=== PATIENT | male | born 1955 | race Caucasian/White ===

== ENCOUNTER 2019-06-25 15:52 | Inpatient (IN) ==
--- NOTE | 2019-06-25 16:45 | Diag Imaging Result Doc PS360 ---
EXAM: CT HEAD/C-SPINE W/O CONTRAST INDICATION: head injury/pain TECHNIQUE: This exam was performed using automated exposure control, adjustment of mA or kV according to patient size, and/or use of iterative reconstruction technique. COMPARISON: CT head dated 06/19/2012 FINDINGS: Head: There is patchy low attenuation in the periventricular white matter suggesting mild to moderate microangiopathy. This has worsened somewhat since 2013. There is no definite acute infarct given the limited sensitivity of CT versus MRI. There is no discrete intracranial mass, mass effect, or intracranial hemorrhage. There is a large right periorbital hematoma. Please see separate facial bone CT report performed concurrently for full details. The calvaria is intact. C-spine: There has been prior anterior cervical fusion from C3 through C6. Metallic fusion hardware is in place. There are bulky ventral marginal osteophytes at the unfused levels. There are degenerative changes at the atlantoaxial joint as well. Otherwise, there is no discrete fracture, subluxation, or intrinsic osseous lesion. The surrounding soft tissues are essentially unremarkable. IMPRESSION: 1.Periventricular and subcortical chronic appearing white matter changes that have worsened since 2013. No evidence of acute intracranial pathology. 2.Right periorbital soft tissue hematoma. Please see separate facial bone CT performed concurrently for full details. 3.Multilevel postsurgical and degenerative changes but no evidence of fracture or other definite acute C-spine injury. Electronically signed by Irineo Rodrigues 06/25/2019 4:43 PM
--- NOTE | 2019-06-25 16:49 | Diag Imaging Result Doc PS360 ---
EXAM: CT MAXILLOFACIAL(SINUS) W/O CO INDICATION: fall, facial injury TECHNIQUE: COMPARISON: None. FINDINGS: There is a large right periorbital soft tissue hematoma. The globes are intact and there is no evidence of retrobulbar hematoma. The orbits are intact. No other facial bone fracture is appreciated. Specifically, the nasal bones, maxilla, mandible, zygomatic arches, and pterygoid plates are intact. The mandible is normally located. There is a small left maxillary sinus mucus retention cyst. There is no evidence of intrasinus hemorrhage. The mastoid air cells are clear. IMPRESSION: Large right periorbital hematoma but no evidence of facial bone fracture. Electronically signed by Irineo Rodrigues 06/25/2019 4:47 PM
--- NOTE | 2019-06-25 17:14 | Diag Imaging Result Doc PS360 ---
EXAM: RIBS UNILAT W/PA CHEST RIGHT INDICATION: fall TECHNIQUE: 4 views COMPARISON: 06/19/2012 FINDINGS: There is a fracture involving the anterior aspect of the ninth rib on the right with minimal displacement. No other definite rib fractures identified by plain radiograph. There is no evidence of pneumothorax or pleural fluid collection. There is evidence of prior granulomatous disease. The cardiomediastinal silhouette and central vasculature are unremarkable. IMPRESSION: Fracture of the anterior aspect of the ninth rib as described. Electronically signed by Irineo Rodrigues 06/25/2019 5:11 PM
[2019-06-25 17:18] LABS: URINE SOURCE CLEAN CATCH
[2019-06-25 17:25] LABS: HEMATOCRIT 34.8 % (42.0-52.0); HEMOGLOBIN 11.9 g/dL (14.0-18.0); IMM GRAN# 0.02 X1000 (0.0-0.04); IMM GRAN% 0.3 % (0.0-0.5); LYMPH# 0.42 X1000 (1.2-3.4); LYMPH% 5.4 % (20.5-51.1); MCHC 34.2 g/dL (33-37); MCV 93.5 FL (81-99); MONO# 0.94 X1000 (0.11-0.59); MONO% 12.2 % (1.7-9.3); MPV 10.4 FL (7.4-10.4); NEUT# 6.34 X1000 (1.4-6.5); NEUT% 82.1 % (42.2-75.2); PLT 168 X1000 (130-400); RBC 3.72 XMIL (4.7-6.1); WBC 7.72 X1000 (4.8-10.8)
[2019-06-25 17:27] LABS: BILIRUBIN URINE NEGATIVE (NEGATIVE); BLOOD URINE MODERATE (NEGATIVE); COLOR YELLOW; GLUCOSE URINE NEGATIVE (NEGATIVE); KETONE URINE 60 mg/dL (NEGATIVE); LEUKOCYTES URINE NEGATIVE (NEGATIVE); NITRITE URINE NEGATIVE (NEGATIVE); PROTEIN URINE 100 mg/dL (NEGATIVE); SP GRAVITY URINE 1.016; TURBIDITY URINE CLEAR (CLEAR); UROBILINOGEN URINE NORMAL (NORMAL)
[2019-06-25 17:29] LABS: UR EPITHELIAL CELLS <10 /HPF (<10); URINE BACTERIA NEGATIVE /HPF; URINE RBC <10 /HPF (<10); URINE WBC <10 /HPF (<10)
[2019-06-25] MEDS ORDERED: DILAUDID IV ONE (17:31)
[2019-06-25] MEDS ORDERED: ZOFRAN IV ONE (17:31)
[2019-06-25 17:36] LABS: INR 1.01; PROTIME 13.4 Seconds (11.0-16.0)
[2019-06-25 17:37] LABS: PTT 36.4 Seconds (22.3-41.8)
[2019-06-25 17:42] LABS: ESTIMATED GFR > 60
[2019-06-25 17:44] LABS: AGAP 24; ALB/GLOB RATIO 1.4; ALBUMIN 4.2 g/dL (3.5-5.0); ALKALINE PHOSPHATASE 106 U/L (32-122); BUN 18 mg/dL (8-22); CALCIUM 9.2 mg/dL (8.8-10.2); CHLORIDE 83 mmol/L (98-107); COSMO 259; GLUCOSE 68 mg/dL (70-104); GOT 173 U/L (10-34); GPT 106 U/L (10-44); POTASSIUM 4.1 mmol/L (3.5-5.1); SODIUM 129 mmol/L (136-145); TCO2 22 mmol/L (25-35); TOTAL BILIRUBIN 1.05 mg/dL (0.20-1.00); TOTAL PROTEIN 7.3 g/dL (6.3-8.3)
--- NOTE | 2019-06-25 18:55 | PROVIDER DOCUMENTATION ---
This chart was entered by Dary Bach Scribe, acting as scribe for Abhay Mccullough MD. HPI-Head Injury - History of Present Illness-Head Injury Head Injury Location: reports: other (right orbit) Other injuries associated with incident:: reports: chest (right chest wall) Quality of Pain: reports: aching Severity: reports: mild Onset/Duration: reports: just prior to arrival Timing: reports: still present Method of Injury: reports: fell Any recent trauma/injury?: reports: to head Loss of Consciousness: no loss of consciousness Locality of Occurance: Home Similar Symptoms Previously?: No Recently seen or treated by another doctor?: No <Abhay Mccullough - Last Filed: 06/25/19 18:55> - General Source: patient, family <Kyle MitchellKee - Last Filed: 06/25/19 20:20> - General Chief Complaint: Head Injury Stated Complaint: FALL Time Seen by Provider: 06/25/19 16:06 Allergies/Adverse Reactions: Patient Allergies Allergy/AdvReac Type Severity Reaction Status Date / Time No Known Allergies Allergy Verified 06/25/19 17:27 Home Medications: Home Medication List Medication Instructions Recorded Confirmed Last Taken Type No Home Medications 06/19/12 06/25/19 Unknown History - History of Present Illness-Head Injury Nature of Presenting Problem: Patient is a 64 year old male who presents to the ED via EMS with a head injury. EMS states patient reported falling multiple times today. Patient states his legs got weak and caused him to fall. Patient states pain to right orbit and right side chest wall. Patient denies LOC. (Abhay Mccullough) Review of Systems - Adult - REVIEW OF SYSTEMS - ADULT Constitutional: reports: no symptoms reported Eyes: reports: no symptoms reported Ears, Nose, Mouth & Throat: reports: no symptoms reported Cardiovascular: reports: no symptoms reported Respiratory: reports: no symptoms reported Gastrointestinal: reports: no symptoms reported Genitourinary: reports: no symptoms reported Musculoskeletal: reports: see HPI, other (right chest wall pain). denies: back pain, neck pain Integumentary: reports: no symptoms reported Neurological: reports: see HPI, other (head injury). denies: headache/migraines, syncope Psychiatric: reports: no symptoms reported Endocrine: reports: no symptoms reported Hematologic/Lymphatic: reports: no symptoms reported Allergic/Immunologic: reports: no symptoms reported All Other Systems: Reviewed and Negative <Abhay Mccullough - Last Filed: 06/25/19 18:55> Past History - Adult - PAST MEDICAL HISTORY-ADULT Review of Records: reports: Old Records Reviewed, Nursing Assessment Review, Medications Reviewed, Social history reviewed & non-contributory. Major Childhood Illnesses: reports: denies history Cardiovascular: reports: HTN Respiratory: reports: denies history Gastrointestinal: reports: denies history Obstetrical/Gynecological: reports: denies history Genitourinary: reports: denies history Musculoskeletal: reports: denies history Neurological: reports: Seizures/Epilepsy Psychiatric: reports: denies history Endocrine/Immune: reports: denies history Other Conditions: reports: denies history - PRIOR SURGERIES/PROCEDURES Surgical/Procedure History: reports: hernia repair, back/neck (back) - IMMUNIZATION STATUS Childhood Immunizations: See Nurse Assessment Flu Vaccine: See Nurse Assessment - FAMILY HISTORY Family History: reviewed, not pertinent - SOCIAL HISTORY Smoking: denies Substance Use: denies <Abhay Mccullough - Last Filed: 06/25/19 18:55> Physical Exam- Neurological - Physical Exam-Neuro Initial Vital Signs Reviewed: Yes General Appearance: alert, no apparent distress. negative: lethargic Eye Exam: right eye: other (large hematoma to periorbital ) HENMT: other (large hematoma to right periorbital region) Head Injury: other (large hematoma to right periorbital region) Neck: non-tender, normal inspection. negative: limited range of motion Respiratory: lungs clear, normal breath sounds, other (right anterior chest wall tenderness). negative: rales, stridor Cardiovascular: regular rate, rhythm, no gallop. negative: systolic murmur Abdominal Exam: normal bowel sounds, non tender, soft. negative: rigid Extremity: other (abrasion to right elbow). 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 negative: facial droop Integumentary: other (large hematoma to right periorbital region). negative: diaphoresis, laceration(s) Psych/Mental Status: normal mood/affect, oriented x 3. negative: anxious <Abhay Mccullough - Last Filed: 06/25/19 18:55> Progress - PLAN OF CARE/RESULTS Result Diagrams: 06/25/19 17:09 06/25/19 17:09 - CT/MRI 1 CT Study: Sinuses Impression: See EMR Report ( EXAM: CT MAXILLOFACIAL(SINUS) W/O CO INDICATION: fall, facial injury TECHNIQUE: COMPARISON: None. FINDINGS: There is a large right periorbital soft tissue hematoma. The globes are intact and there is no evidence of retrobulbar hematoma. The orbits are intact. No other facial bone fracture is appreciated. Specifically, the nasal bones, maxilla, mandible, zygomatic arches, and pterygoid plates are intact. The mandible is normally located. There is a small left maxillary sinus mucus retention cyst. There is no evidence of intrasinus hemorrhage. The mastoid air cells are clear. IMPRESSION: Large right periorbital hematoma but no evidence of facial bone fracture. Electronically signed by Irineo Rodrigues 06/25/2019 4:47 PM 06/25/19 1647 Interpreting Physician: Irineo Rodrigues MD Dictated Date/Time: 06/25/19 1642 cc: Abhay Mccullough MD; None,PCP) 2 CT Study: Cervical Spine, Head Impression: See EMR Report (EXAM: CT HEAD/C-SPINE W/O CONTRAST INDICATION: head injury/pain TECHNIQUE: This exam was performed using automated exposure control, adjustment of mA or kV according to patient size, and/or use of iterative reconstruction technique. COMPARISON: CT head dated 06/19/2012 FINDINGS: Head: There is patchy low attenuation in the periventricular white matter suggesting mild to moderate microangiopathy. This has worsened somewhat since 2012. There is no definite acute infarct given the limited sensitivity of CT versus MRI. There is no discrete intracranial mass, mass effect, or intracranial hemorrhage. There is a large right periorbital hematoma. Please see separate facial bone CT report performed concurrently for full details. The calvaria is intact. C-spine: There has been prior anterior cervical fusion from C3 through C6. Metallic fusion hardware is in place. There are bulky ventral marginal osteophytes at the unfused levels. There are degenerative changes at the atlantoaxial joint as well. Otherwise, there is no discrete fracture, subluxation, or intrinsic osseous lesion. The surrounding soft tissues are essentially unremarkable. IMPRESSION: 1.Periventricular and subcortical chronic appearing white matter changes that have worsened since 2012. No evidence of acute intracranial pathology. 2.Right periorbital soft tissue hematoma. Please see separate facial bone CT performed concurrently for full details. 3.Multilevel postsurgical and degenerative changes but no evidence of fracture or other definite acute C-spine injury. Electronically signed by Irineo Rodrigues 06/25/2019 4:43 PM 06/25/19 1643 Interpreting Physician: Irineo Rodrigues MD Dictated Date/Time: 06/25/19 1635 cc: Abhay Mccullough MD; None,PCP) - CHANGE OF SHIFT REPORT (ED Provider) 1 Report Given and Care Transferred to:: Dr Mitchell Time of Transfer: 19:00 Items Pending: Labs <Abhay Mccullough - Last Filed: 06/25/19 18:55> - PLAN OF CARE/RESULTS Result Diagrams: 06/25/19 17:09 06/25/19 17:09 - CONSULTS/PCP/HOSPITALIST Notification #1 *Consult/PCP/Hospitalist*: dr Robles Time Discussed: 20:05 Consult Disposition: Admit <Kyle Mitchell - Last Filed: 06/25/19 20:20> - PLAN OF CARE/RESULTS Progress/Plan/Lab Results: Vital Signs - 8 hr 06/25/19 16:20 06/25/19 17:13 06/25/19 17:14 Temperature 98.9 F Pulse Rate 104 H Respiratory Rate 16 Blood Pressure 177/90 155/91 O2 Sat by Pulse Oximetry 95 95 96 06/25/19 17:45 06/25/19 18:07 06/25/19 18:32 Temperature Pulse Rate 98 H 107 H Respiratory Rate 14 18 14 Blood Pressure 154/93 132/83 O2 Sat by Pulse Oximetry 99 95 06/25/19 19:02 Temperature Pulse Rate 98 H Respiratory Rate Blood Pressure 161/97 O2 Sat by Pulse Oximetry 97 Laboratory Results - last 24 hr 06/25/19 06/25/19 06/25/19 17:09 17:09 17:09 WBC 7.72 RBC 3.72 L Hgb 11.9 L Hct 34.8 L MCV 93.5 MCH 32.0 H MCHC 34.2 RDW Std Deviation 13.0 Plt Count 168 MPV 10.4 Immature Gran % (Auto) 0.3 Neut % (Auto) 82.1 H Lymph % (Auto) 5.4 L Daniels % (Auto) 12.2 H Eos % (Auto) 0.0 Baso % (Auto) 0.0 Immature Gran # (Auto) 0.02 Neut # (Auto) 6.34 Lymph # (Auto) 0.42 L Daniels # (Auto) 0.94 H Eos # (Auto) 0.00 Baso # (Auto) 0.00 PT INR PTT (Actin FS) Sodium 129 L Potassium 4.1 Chloride 83 L Carbon Dioxide 22 L Anion Gap 24 BUN 18 Creatinine 1.0 Estimated GFR/1.73 m2 > 60 BUN/Creatinine Ratio 18 Glucose 68 L Calculated Osmolality 259 Calcium 9.2 Total Bilirubin 1.05 H AST 173 H ALT 106 H Alkaline Phosphatase 106 Troponin T High Sens Total Protein 7.3 Albumin 4.2 Globulin 3.1 Albumin/Globulin Ratio 1.4 Urine Source Urine Color Urine Turbidity Urine pH Ur Specific [place] Urine Protein Ur Glucose (Stick) Ur Ketones (Stick) Urine Blood Urine Nitrite Urine Bilirubin Urobilinogen Dipstick Urine Leukocytes Urine WBC (Auto) Urine RBC (Auto) U Epithel Cells (Auto) Urine Bacteria (Auto) Plasma/Serum Ethyl Alc 06/25/19 06/25/19 06/25/19 17:09 17:09 17:15 WBC RBC Hgb Hct MCV MCH MCHC RDW Std Deviation Plt Count MPV Immature Gran % (Auto) Neut % (Auto) Lymph % (Auto) Daniels % (Auto) Eos % (Auto) Baso % (Auto) Immature Gran # (Auto) Neut # (Auto) Lymph # (Auto) Daniels # (Auto) Eos # (Auto) Baso # (Auto) PT 13.4 INR 1.01 PTT (Actin FS) 36.4 Sodium Potassium Chloride Carbon Dioxide Anion Gap BUN Creatinine Estimated GFR/1.73 m2 BUN/Creatinine Ratio Glucose Calculated Osmolality Calcium Total Bilirubin AST ALT Alkaline Phosphatase Troponin T High Sens 117 H* Total Protein Albumin Globulin Albumin/Globulin Ratio Urine Source CLEAN CATCH Urine Color YELLOW Urine Turbidity CLEAR Urine pH 6.0 Ur Specific [place] 1.016 Urine Protein 100 A Ur Glucose (Stick) NEGATIVE Ur Ketones (Stick) 60 A Urine Blood MODERATE A Urine Nitrite NEGATIVE Urine Bilirubin NEGATIVE Urobilinogen Dipstick NORMAL Urine Leukocytes NEGATIVE Urine WBC (Auto) <10 Urine RBC (Auto) <10 U Epithel Cells (Auto) <10 Urine Bacteria (Auto) NEGATIVE Plasma/Serum Ethyl Alc Orders Category Date Time Status CT HEAD/C-SPINE W/O CONTRAST [CT] Stat Exams 06/25/19 16:[address] MAXILLOFACIAL(SINUS) W/O CO [CT] Stat Exams 06/25/19 16:02 Completed RIBS UNILAT W/PA CHEST RIGHT [RAD] Stat Exams 06/25/19 16:19 Completed ALCOHOL BLOOD Stat Lab 06/25/19 17:09 Completed CBC WITH ELECTRONIC DIFF [HEME] Stat Lab 06/25/19 17:09 Completed COMPREHENSIVE METABOLIC PANEL [CHEM] Stat Lab 06/25/19 17:09 Completed PT [PROTIME WITH INR] [COAG] Stat Lab 06/25/19 17:09 Completed PTT [COAG] Stat Lab 06/25/19 17:09 Completed TROPONIN T HIGH SENSITIVITY Stat Lab 06/25/19 17:09 Completed TROPONIN T HIGH SENSITIVITY Stat Lab 06/25/19 20:10 Ordered URINALYSIS W/POSS RFLX CULT [URINALYSIS] Stat Lab 06/25/19 17:15 Completed Hydromorphone [Dilaudid] Med 06/25/19 17:31 Discontinued 1 mg IV NOW ONE Ondansetron [Zofran] Med 06/25/19 17:31 Discontinued 4 mg IV NOW ONE EKG [EKG] Stat Ther 06/25/19 18:04 Ordered Departure - Departure Date of Disposition Decision: 06/25/19 Certified Medical Emergency: Emergent <Abhay Mccullough - Last Filed: 06/25/19 18:55> - Departure Time of Disposition Decision: 20:16 Certified Medical Emergency: Emergent - Critical Care Note This patient required my direct & personal management of CC.: Yes Total Time (mins): 30 Critical Care Statement: This patient required my direct personal management to treat or rule out processes, the absence of which, could potentiallly result in sudden, clinically significant life or limb threatening deterioration. <Kyle Mitchell - Last Filed: 06/25/19 20:20> - Departure DIAGNOSIS: Non-ST elevated myocardial infarction (non-STEMI), Hyponatremia Fall Qualifiers: Encounter type: initial encounter Qualified Code(s): W19.XXXA - Unspecified fall, initial encounter Traumatic hematoma of face Qualifiers: Encounter type: initial encounter Qualified Code(s): S00.83XA - Contusion of other part of head, initial encounter Disposition: ADMITTED INPATIENT 09 Condition: Fair Referrals and Follow-Ups: None,PCP [Primary Care Provider] - Attestation - Physician/ MALLIKA Attestation The physician spent face to face time with patient:: Yes Advanced Practice Provider documentation review:: Supervising physician onsite and consulted in the evaluation and care of this patient. The physician did have a face to face encounter with the patient. <Abhay Mccullough - Last Filed: 06/25/19 18:55> This chart was documented by the indicated scribe, (Dary Bach Scribe) and accurately reflects the services I performed and decisions made by me, Abhay Mccullough MD, as attested by the provider's signature.
[2019-06-25] MEDS ORDERED: LIPITOR PO ONE ×2 (21:16→22:20)
[2019-06-25] MEDS ORDERED: ATIVAN IV ONE (21:16)
[2019-06-25] MEDS ORDERED: COREG PO ONE ×2 (21:16→21:50)
[2019-06-25] MEDS ORDERED: M.V.I.-12 10 ML, FOLIC ACID 1 MG, MAGNESIUM SULFATE 1 GM, THIAMINE 100 MG in NS 1,000 ML IV ONE (21:17)
[2019-06-25] MEDS ORDERED: ZOFRAN IV PRN (22:20)
[2019-06-25] MEDS: COREG PO SCH (22:20)
[2019-06-25] MEDS ORDERED: NS 1,000 ML IV ONE (22:20)
--- NOTE | 2019-06-26 00:04 | HISTORY AND PHYSICAL ---
REASON FOR ADMISSION: Lower extremity weakness and recurrent falls. HISTORY OF PRESENT ILLNESS: Mr. Travis Sweeney is a 64-year-old man who presents to the ER after falling and hitting his head. He says he has been having multiple falls for the last couple of days, more so today. He attributes his falls to chronic weakness in his legs emanating from neck and back problems affecting his spine. He says he usually has a very unsteady gait and that is what leads to him falling. He denies any antecedent chest pain, palpitations or lightheadedness preceding the falls. He never blacks out each time he falls. Today apparently he fell and landed on the right side of his head and chest. He states that he was in a lot of pain and had a hard time getting up. Fortunately, his nephews were not too far and they saw him on the floor and assisted him. The patient stated he never lost consciousness during the whole process. He was brought to the ER primarily because of the swelling on the right side of his head. The patient denies any antecedent complaints of bleeding, vomiting or diarrhea. He denies any postural lightheadedness. He denies any cardiorespiratory symptoms. He denies any use of any medications, herbal or otherwise. He only takes an aspirin p.r.n. and no other medications. He does admit that he drinks at least 12 beers a day and his last beer was once this morning. He admits that when he does not drink his legs get also very shaky and his gait is very unsteady. No auditory or visual hallucinations. No focal neurological complaints. REVIEW OF SYSTEMS: Twelve-system review was done. Positive findings per HPI. ALLERGIES: None. MEDICATIONS: None. PAST SURGICAL HISTORY: The patient says that he has had 4 spinal surgeries and one cervical disk fusion, with the last surgery in 2009. PAST MEDICAL HISTORY: The patient only admits to having hypertension but has been off his medication for several years. FAMILY HISTORY: Notable for strokes and heart disease in first-degree relatives. No seizures. SOCIAL HISTORY: He drinks 12 beers a day. He does not smoke or use illicit drugs. He lives alone in a trailer but his family is close by. LABORATORY DATA: White count 7000, hemoglobin and hematocrit 11 and 34, platelets 168,000, 82% neutrophils. PT is normal. Sodium 129, BUN 18, creatinine 1.0, glucose 68, total bilirubin is 1.05, AST 173, ALT 106. Troponin is 117. Subsequent troponin is 114. ProBNP is 2300. Uric acid is 9.9. Serum osmolality is 265. Urine osmolality is pending. TSH is 1.0. Urinalysis specific gravity is 1.016, 100 protein, moderate blood, random sodium is 42. Alcohol level is undetected. DIAGNOSTIC DATA: Chest x-ray shows anterior rib fracture of the 9th rib. Maxillofacial CT done showed large right periorbital hematoma without any evidence of facial bone fracture. CT head and C-spine was done which showed periventricular and subcortical chronic white matter changes, which have worsened since 2013; he has a small right periorbital soft tissue hematoma noted; he has postsurgical degenerative changes of the C-spine. His EKG showed normal sinus rhythm. Compared to the old EKG I reviewed, he has new flipped T waves in the lateral leads. No other ischemic changes or acute injury pattern changes. PHYSICAL EXAMINATION: VITAL SIGNS: His blood pressure is 171/92, heart rate 86, respirations 15, temperature is 98.9 degrees, 96% on room air. GENERAL: He is a pleasant but somewhat disheveled middle-aged man who is alert and oriented to person, place and time. Normal mood and affect. HEENT: Head shows large periorbital edema resulting in complete closure of his eyes. When I tried to retract his eyelids, his pupils are reactive on the right and on the left, but he does have scleral ecchymoses on the temporal half of his eye. EOMI. ENT and oropharyngeal exam is negative for any nasal or ear drainage. No oropharyngeal exudates or erythema. No central cyanosis. NECK: Supple. No JVD or carotid bruit. No thyromegaly. CHEST: Clear when auscultated with good air entry in both lung hummel. CARDIOVASCULAR: First and second heart sounds heard. No gallops or murmurs. Rhythm is regular. ABDOMEN: Full, soft. No tenderness. No organomegaly. Bowel sounds are normal. RECTAL: Exam deferred at this time. EXTREMITIES: No edema, clubbing or cyanosis. Good distal pulse volumes. NEUROLOGIC: No gross focal deficits noted, but he has fine resting tremors on outstretched hands. SKIN: Intact, except for the aforementioned bruise on the face and abrasion on the right elbow. MUSCULOSKELETAL: Exam is grossly normal. ASSESSMENT: 1. Xeh-ES-mvomnlrgl myocardial infarction, probably type 2 demand ischemia. 2. Hypertensive heart disease. 3. Alcohol abuse with early withdrawal. 4. Hyponatremia, probably secondary to beer potomania. 5. Head injury complicated with periorbital hematoma. PLAN: Case was discussed with Dr. Patel, who said to avoid any anticoagulations due to the extensive hematoma. We will start the patient on aspirin hopefully early in the morning, along with statin and beta-marnie, the latter for blood pressure control, rate control and to act as a sympatholytic agent in the face of early alcohol withdrawal. The patient was given a banana bag. Vitamin deficiencies will need to be evaluated, which would were definitely present in this patient. Monitor the patient's sodium levels, which are likely due to beer potomania, and avoid hypotonic solutions. Can give either isotonic or hypertonic solutions to correct this. His ataxia could also be due to not only spinal problems or from tremors, but also from hyponatremia. We will start the patient on beta-blockers for blood pressure control. The patient will need to be evaluated for skilled nursing placement because he is at very high risk of severe injury, i.e., head injury. I also do believe this patient is probably also having subcortical strokes, especially based on his CAT scan. cc: Demond Carlson MD
[2019-06-26 00:20] LABS: CK INDEX 0.6 (0.0-2.5); CK-MB 28.52 ng/mL (0.0-5.0)
[2019-06-26] MEDS ORDERED: ATIVAN IV ONE (02:49)
[2019-06-26] MEDS: MORPHINE IV PRN ×3 (03:03→23:28)
[2019-06-26] MEDS: ATIVAN IV PRN ×6 (05:04→21:37)
[2019-06-26 07:21] LABS: ESTIMATED GFR > 60
[2019-06-26 07:24] LABS: CK INDEX 0.6 (0.0-2.5); CK-MB 24.18 ng/mL (0.0-5.0)
[2019-06-26 07:25] LABS: AGAP 16; ALB/GLOB RATIO 1.6; ALBUMIN 3.7 g/dL (3.5-5.0); ALKALINE PHOSPHATASE 87 U/L (32-122); BUN 22 mg/dL (8-22); CALCIUM 8.2 mg/dL (8.8-10.2); CHLORIDE 88 mmol/L (98-107); COSMO 263; GLUCOSE 82 mg/dL (70-104); GOT 146 U/L (10-34); GPT 81 U/L (10-44); POTASSIUM 4.2 mmol/L (3.5-5.1); SODIUM 130 mmol/L (136-145); TCO2 26 mmol/L (25-35); TOTAL BILIRUBIN 0.92 mg/dL (0.20-1.00)
[2019-06-26 07:28] LABS: BASO# 0.02 X1000 (0.0-0.2); BASO% 0.3 % (0.0-0.8); EOS# 0.08 X1000 (0.0-0.7); EOS% 1.2 % (0.0-10.0); HEMATOCRIT 30.5 % (42.0-52.0); HEMOGLOBIN 10.2 g/dL (14.0-18.0); LYMPH% 13.4 % (20.5-51.1); MCHC 33.4 g/dL (33-37); MCV 95.6 FL (81-99); MONO# 1.39 X1000 (0.11-0.59); MONO% 20.7 % (1.7-9.3); MPV 10.5 FL (7.4-10.4); NEUT# 4.34 X1000 (1.4-6.5); NEUT% 64.4 % (42.2-75.2); PLT 166 X1000 (130-400); RBC 3.19 XMIL (4.7-6.1); RDW 13.2 % (11.5-14.5); WBC 6.73 X1000 (4.8-10.8)
--- NOTE | 2019-06-26 07:39 | EKG Report ---
Test Performed on : 06/26/2019 07:17:26 AM Test Reason : ACS/AMI Blood Pressure : / mmHG Vent. Rate : 072 BPM Atrial Rate : 072 BPM P-R Int : 168 ms QRS Dur : 084 ms QT Int : 444 ms P-R-T Axes : 063 017 087 degrees QTc Int : 486 ms Normal sinus rhythm. Nonspecific T wave abnormality Prolonged QT Abnormal ECG When compared with ECG of 25-JUN-2019 18:11, (Unconfirmed) Nonspecific T wave abnormality has replaced inverted T waves in Lateral leads Confirmed by Martin PALMER, Sonido Devries ([id number]) on 06/27/2019 7:01:50 PM
[2019-06-26] MEDS: ASPIRIN PO SCH (09:56)
[2019-06-26] MEDS: COREG PO SCH ×2 (09:56→21:02)
[2019-06-26 11:05] LABS: LYMPHS 18 % (21-51); MONO 8 % (1-9); SEGS 71 % (42-75)
[2019-06-26] MEDS: THIAMINE IM SCH (12:08)
--- NOTE | 2019-06-26 15:16 | CARDIOLOGY CONSULTATION ---
DATE: 06/26/2019 CHIEF COMPLAINT: Fall. HISTORY OF PRESENT ILLNESS: Mr. Sweeney is a 64-year-old gentleman with a history of alcoholism who has had issues with frequent weakness in his lower extremities and falls over the last several days. He hit his head yesterday and has a large hematoma involving the right eye, right forehead and right cheek area. He denies any syncope. His last drink he thinks was yesterday about 5 to 6 hours prior to presentation. He is not sure if he has had any issues with withdrawal in the past. He adamantly denies pain in any other areas other than his head. He drinks around 12 beers a day. PAST MEDICAL HISTORY: Significant for alcoholism. He is not on any home medications. SOCIAL HISTORY: Again at least 12 beers per day. No current tobacco use. No illicit drugs. FAMILY HISTORY/REVIEW OF SYSTEMS: Unable to be obtained secondary to patient's mild levels. PHYSICAL EXAMINATION: Vital Signs: He is afebrile. His heart rate presently is in the 70s. His blood pressure is 175/89. General: He is in no acute distress. HEENT: Oropharynx is moist. She has very poor dentition. He has a large hematoma involving the right orbital area that results in closure of the right eye. He is unable to open this. Neck: Examination shows no obvious thyromegaly or thyroid tenderness. Cardiovascularly: He sounds to be in a regular rate and rhythm. He has no obvious murmurs. He has no S3. He has no lower extremity edema. Chest: Exam is clear to auscultation bilaterally. He has no increased work of breathing. Abdomen: Soft, nontender. He has no obvious organomegaly. Skin: Warm and dry throughout without any rashes. Abdomen: Soft, nontender, nondistended. No obvious organomegaly. Warm and dry throughout. Neurological: He is moving all extremities. He is quite anxious fidgety. DIAGNOSTIC DATA: CT of the maxillofacial shows a large right periorbital hematoma. Head, C-spine CT reviews showed periventricular and subcortical chronic appearing white matter changes worsened since 2013 periorbital hematoma noted. Degenerate changes in the C-spine. His electrocardiogram demonstrated sinus rhythm, no significant EKG changes identified. Rib series demonstrate a fracture of the anterior aspect of the 9th rib on the right. LABORATORY DATA: White count 6.7, hematocrit 30, platelet count is 166,000. Sodium 130, potassium 4.2, BUN 22, creatinine is 1. Cardiac enzymes demonstrate a CK that is elevated in the 4000s. His high sensitivity troponin has ranged anywhere from 88 to 117. His MB fractions have been elevated but his indexes are normal. ASSESSMENT: Mr. Sweeney is a 64-year-old gentleman who has had episodes of leg weakness. He has not had syncope. He has a large hematoma on his right facial area. He has laboratory data that suggests a rhabdomyolysis. PLAN: At this point, we will check an echo. If this is unremarkable then we will sign off. This currently does not appear to be acute coronary syndrome. It is more likely a result of a rhabdomyolysis from multiple falls that have not been related to syncope and seemed to be related to just diffuse leg weakness. cc: Amauri Zuluaga MD
[2019-06-26] MEDS: VALIUM PO SCH ×2 (15:37→21:02)
--- NOTE | 2019-06-26 15:39 | PROGRESS NOTE ---
DATE: 06/26/2019 I have seen and examined Mr. Sweeney today. He is still in the emergency room. He is pending hospital bed. Mr. Sweeney refers to be doing a little better today. He denies any chest pain or shortness of breath. He did, however, say that he was on his driveway when his legs lost control and he fell on his face, hitting hard. He did not have any loss of consciousness, according to him. Mr. Sweeney drinks about 12 cans of beer on a daily basis. He said he has to take a shot every morning to get his day started. He lives by himself and he is for the most part self-sufficient. OBJECTIVELY: Current Vitals: Blood pressure is 150/78, pulse of 69, respiration is 15, temperature 97.8 degrees, patient is saturating 94%. General: Mr. Sweeney is a 64-year-old gentleman. He is in bed. He is not in any cardiopulmonary distress. He looks quite unkept. Mucosa is pink and moist. Anicteric. Acyanotic. The face, there is swelling over the right eye with some ecchymotic lesions. Neck: Supple. There was no JVD. Chest: Good air entry bilaterally. A few distant wheezing but no crackles and no rhonchi. Cardiovascular: Regular rate and rhythm. No murmurs, no rubs, no gallops. GI: Abdomen was soft, minimally distended, but nontender. Bowel sounds present. Extremities: No pedal edema. PARK INTERPRETIVE RANGER: Patient was awake, alert, oriented x3. He has no motor deficit. Sensation is intact, both pinprick and vibration sense. The patient has some old scars over the cervical spine as well as the lumbar spine from previous spine surgeries. LABORATORY DATA: WBC 6.72, hemoglobin is 10.2, platelet count of 166,000. Chemistry is also reviewed. Sodium is slightly up to 130, chloride is 88. AST is 146, ALT is 81. Troponins are elevated. IMAGING STUDIES: A CT scan of the head and cervical spine shows periventricular and subcortical chronic appearing white matter changes. There is also a right periorbital soft tissue hematoma. There is a multilevel postsurgical and degenerative changes but no evidence of fracture or definite acute cervical spine. There is a maxillofacial CAT scan, which also shows a large right periorbital hematoma, but no evidence of facial bone fracture. The rib x-ray shows a fracture of the anterior aspect of the 9th rib. ASSESSMENT: 1. Status post mechanical fall resulting in a facial trauma with a large right periorbital hematoma. The patient's vision seems to be okay with no visual deficits. We will continue to monitor this during the hospital course. 2. Severe alcohol use and abuse with withdrawal symptoms. The patient is remarkably shaky, however, he does not have any altered mentation. He is not hallucinating at this point. We are going to continue with Valium and p.r.n. Ativan and we will replace all the minerals and electrolytes abnormality associated with alcohol use and abuse. 3. Uncontrolled hypertension. Patient has been started on carvedilol. 4. Elevated troponin. Unsure if the patient has an underlying atherosclerotic coronary artery disease or this is a demand mismatch ischemia. The patient has been evaluated by Cardiology. There is a plan for echocardiogram. We will continue to monitor. 5. Hyponatremia, most likely due to beer potomania noted. We will continue to restrict free water. 6. History of lower extremity weakness. Mr. Sweeney refers that this has been going on for a while and it is normally associated to his back surgery. On physical exam, however, he seems to be pretty strong and he did not have any sensory deficit and power seems to be about 5/5 in both lower extremities. We will continue to monitor this during the hospital course and we will get physical therapy also to evaluate him. cc: Matt Galarza MD
[2019-06-26 16:37] LABS: CK INDEX 0.6 (0.0-2.5); CK-MB 25.26 ng/mL (0.0-5.0)
--- NOTE | 2019-06-26 19:34 | ECHO REPORT ---
ORDER DATE: 06/26/2019 INDICATION: The patient had suffered a fall, question of non-ST myocardial infarction. M-MODE MEASUREMENTS: Left ventricle end diastole: 5.7. Left ventricle end systole: 3.6. Posterior wall: 1.1. Interventricular septum: 1.1. Left atrium: 3.8. Aortic diameter: 3.6. SUMMARY OF 2-DIMENSIONAL IMAGIN. Left ventricular function appears to be at the low limits of normal, estimated at 55%. Optison was added to optimize visualization of the endocardium. There is suggestion of hypokinesis of the base of the inferior wall of the left ventricle. 2. The aortic valve appears to be grossly normal. Color flow mapping unremarkable. 3. The mitral valve shows calcification of the annulus. Color flow mapping indicates a mild degree of regurgitation. 4. Pulse wave (PW) Doppler of mitral inflow shows mild reversal of the E/A ratio. The ratio is 0.6. 5. Tissue Doppler of septal and lateral mitral annulus averages 6 cm. 6. Question of impaired left ventricular relaxation. 7. The tricuspid valve shows a mild degree of regurgitation. Pulmonary pressure estimated at 40 mmHg. 8. The pulmonic valve is unremarkable. 9. The aortic valve is unremarkable. Color flow mapping unremarkable. 10.There is no pericardial effusion, no mass, and no thrombus. 11.The left atrium appears to be mildly enlarged. SUMMARY: This study shows: 1. Left ventricular systolic function at the lower limits of normal, ejection fraction of 55% with hypokinesis of the basal to midportion of the inferior wall of the left ventricle, raising concern for coronary heart disease. 2. Calcification of the mitral annulus. 3. Impaired left ventricular relaxation. 4. Mild degree of pulmonary hypertension at 40 mmHg. 5. Unremarkable aortic valve. Clinical correlation recommended. cc: MD Amauri Johnston MD MTDD
[2019-06-26 21:28] LABS: URINE SOURCE CATH
[2019-06-26 21:33] LABS: BILIRUBIN URINE NEGATIVE (NEGATIVE); BLOOD URINE TRACE (NEGATIVE); COLOR YELLOW; GLUCOSE URINE NEGATIVE (NEGATIVE); KETONE URINE 20 mg/dL (NEGATIVE); LEUKOCYTES URINE NEGATIVE (NEGATIVE); NITRITE URINE NEGATIVE (NEGATIVE); PROTEIN URINE TRACE mg/dL (NEGATIVE); SP GRAVITY URINE 1.013; TURBIDITY URINE CLEAR (CLEAR); UR EPITHELIAL CELLS <10 /HPF (<10); URINE BACTERIA NEGATIVE /HPF; URINE RBC <10 /HPF (<10); URINE WBC <10 /HPF (<10); UROBILINOGEN URINE NORMAL (NORMAL)
[2019-06-26] MEDS: ATIVAN 20 MG in NS 190 ML IV SCH (22:43)
[2019-06-27] MEDS: MORPHINE IV PRN ×2 (06:05→23:51)
[2019-06-27] MEDS: ATIVAN IV PRN (06:05)
[2019-06-27 06:12] LABS: HEMATOCRIT 34.3 % (42.0-52.0); HEMOGLOBIN 11.4 g/dL (14.0-18.0); MCH 31.8 PG (27-31); MCHC 33.2 g/dL (33-37); MCV 95.8 FL (81-99); MPV 10.4 FL (7.4-10.4); RBC 3.58 XMIL (4.7-6.1); RDW 12.9 % (11.5-14.5); WBC 8.18 X1000 (4.8-10.8)
[2019-06-27 06:42] LABS: AGAP 23; ALBUMIN 3.8 g/dL (3.5-5.0); BUN 17 mg/dL (8-22); CALCIUM 8.8 mg/dL (8.8-10.2); CHLORIDE 92 mmol/L (98-107); COSMO 272; CREATININE 0.8 mg/dL (0.7-1.2); ESTIMATED GFR > 60; GLUCOSE 66 mg/dL (70-104); IRON SATURATION 21 %; PHOSPHORUS 3.4 mg/dL (2.7-4.5); POTASSIUM 3.8 mmol/L (3.5-5.1); SODIUM 136 mmol/L (136-145); TCO2 21 mmol/L (25-35); TIBC 224 ug/dL; TOTAL IRON 48 ug/dL (53-167); UNBOUND IRON 176 ug/dL (112-346)
[2019-06-27 06:45] LABS: FERRITIN 1042 ng/mL (30-400)
[2019-06-27] MEDS: ATIVAN 20 MG in NS 190 ML IV SCH ×2 (08:04→18:55)
[2019-06-27] MEDS: COREG PO SCH ×2 (10:03→21:02)
[2019-06-27] MEDS: ASPIRIN PO SCH (10:03)
[2019-06-27] MEDS: VALIUM PO SCH ×2 (10:03→21:02)
[2019-06-27] MEDS: THIAMINE IM SCH (11:16)
--- NOTE | 2019-06-27 13:49 | PROGRESS NOTE ---
DATE: 06/27/2019 SUBJECTIVE: This morning Mr. Sweeney is seen in the ICU. He was actually sleeping, is arousable. He said was doing well. I understand he had just been given his mangle press catcher Valium dose. OBJECTIVE: Vital signs: Blood pressure is 158/78, pulse of 69, respiration is 12, temperature 98.2 degrees. General: Mr. Sweeney is a 64-year-old gentleman. He is in bed, no distress. HEENT: Mucosa is pink and moist. Anicteric. Acyanotic. The patient has swelling over the right eye with ecchymotic lesions. NECK: Was supple there was no JVD. Respiratory System: There was a clear good air entry bilaterally in both lungs. Some few distant wheezing in posterior lung hummel. No rhonchi and no crackles. Cardiovascular: Regular rate and rhythm. No murmurs, no rubs, no gallops. GI: Abdomen soft, nontender. Bowel sounds present. There is no hepatosplenomegaly. Extremities: No pedal edema. Distal pulses are present. INSULATION MECHANIC: Patient is sleepy but easily arousable. Follows commands. LABORATORY DATA: WBC is 8.18, hemoglobin is 11.4, platelet count of 217,000. Chemistry is also reviewed, unremarkable. ASSESSMENT: 1. Status post mechanical fall resulting in a facial trauma with a large right periorbital hematoma. The patient has a normal vision in the right eye. 2. Alcohol use and abuse with withdrawal symptoms. We will continue with the withdrawal protocol. 3. Uncontrolled hypertension improved. 4. Mildly elevated troponin. Cardiology is on board. The patient's EKG is unremarkable we are pending the result of the echo. 5. Hyponatremia presumed to be a potomania. We will continue fluid restriction. 6. Weakness in lower extremities. Patient current physical exam shows normal power and no motor deficit. cc: Matt Galarza MD
--- NOTE | 2019-06-27 19:54 | CARDIOLOGY PROGRESS NOTE ---
DATE: 06/27/2019 SUBJECTIVE: Mr. Sweeney is a bit more confused than yesterday. He is in restraints. He is not opening his eyes but he mumbles unintelligibly to the examiner. PHYSICAL EXAMINATION: He is afebrile. His heart rate is 75. His blood pressure most recently was 155/94. His systolics have been widely variable anywhere from the 120s to 200s.Generally: He is in no acute distress. HEENT: He continues to have marked hematomas to the right periorbital area. Cardiovascular: He is in a regular rate and rhythm. He has no obvious murmurs. He has no S3. He has no lower extremity edema. Chest: Clear bilaterally. He has no increased work of breathing. Abdomen: Soft, nontender. PERTINENT DATA: His echocardiogram was reviewed. Preserved ejection fraction. Suggestion of possible mild hypokinesis of the base of the left ventricle. His lab data shows a sodium 136, potassium 3.8, BUN 17, creatinine 0.8. His TSH was normal. He had a troponin that was initially 117, subsequently trended down to 88. His electrocardiogram on the demonstrated sinus rhythm, with no ischemic changes. ASSESSMENT: Mr. Sweeney is a 64-year-old gentleman who presented with what appeared to be rhabdomyolysis. He had a low grade troponin elevation. He has no symptoms suggestive of acute coronary syndrome. PLAN: His ejection fraction is preserved but he does appear to have a possible segmental wall motion abnormality. Considering his current clinical situation we will continue him on the aspirin and carvedilol. I would not recommend pursuing an ischemia evaluation currently. We may plan on doing stress testing in the near future. I will add in a low-dose ARB for better control of his blood pressure, also in the setting of possible wall motion abnormality noted on his echocardiogram. cc: Amauri Zuluaga MD
[2019-06-28] MEDS: MORPHINE IV PRN (03:13)
[2019-06-28] MEDS ORDERED: DUONEB (A & A) INH PRN (03:38)
[2019-06-28 05:45] LABS: INR 1.01; PROTIME 13.4 Seconds (11.0-16.0)
[2019-06-28 05:50] LABS: BASO# 0.04 X1000 (0.0-0.2); BASO% 0.5 % (0.0-0.8); EOS# 0.43 X1000 (0.0-0.7); EOS% 5.9 % (0.0-10.0); HEMATOCRIT 34.9 % (42.0-52.0); HEMOGLOBIN 11.5 g/dL (14.0-18.0); LYMPH# 1.17 X1000 (1.2-3.4); LYMPH% 15.9 % (20.5-51.1); MCV 97.2 FL (81-99); MONO# 1.59 X1000 (0.11-0.59); MONO% 21.6 % (1.7-9.3); MPV 10.1 FL (7.4-10.4); NEUT# 4.12 X1000 (1.4-6.5); NEUT% 56.1 % (42.2-75.2); PLT 247 X1000 (130-400); RBC 3.59 XMIL (4.7-6.1); RDW 12.9 % (11.5-14.5); WBC 7.35 X1000 (4.8-10.8)
[2019-06-28 06:17] LABS: AGAP 18; ALB/GLOB RATIO 1.3; ALBUMIN 3.7 g/dL (3.5-5.0); ALKALINE PHOSPHATASE 94 U/L (32-122); BUN 14 mg/dL (8-22); CALCIUM 8.7 mg/dL (8.8-10.2); CHLORIDE 93 mmol/L (98-107); COSMO 273; CREATININE 0.8 mg/dL (0.7-1.2); ESTIMATED GFR > 60; GLUCOSE 84 mg/dL (70-104); GOT 91 U/L (10-34); GPT 65 U/L (10-44); POTASSIUM 3.2 mmol/L (3.5-5.1); SODIUM 137 mmol/L (136-145); TCO2 26 mmol/L (25-35); TOTAL BILIRUBIN 1.01 mg/dL (0.20-1.00); TOTAL PROTEIN 6.6 g/dL (6.3-8.3)
--- NOTE | 2019-06-28 08:19 | Diag Imaging Result Doc PS360 ---
EXAM: CHEST-PORTABLE INDICATION: dyspnea, hypoxia TECHNIQUE: One view COMPARISON: 06/25/2019 FINDINGS: Lung volumes are somewhat lower. There are lungs remain grossly clear, however. No new consolidation is identified. Cardiac silhouette is stable. IMPRESSION: Slightly lower lung volumes. Stable chest, otherwise. Electronically signed by Irineo Rodrigues 06/28/2019 8:17 AM
[2019-06-28 08:59] LABS: ALLEN TEST YES; BE 1.7 mmoll (-3.0-3.0); BLOOD TYPE ARTERIAL; HCO3-(ACT) 26.2 mmoll (20.0-26.0); METHB 1.4 % (0.0-1.5); O2(CT) 16.1 mL/dL (15.0-23.0); O2HB 96.5 % (95.0-99.0); PCO2(98.6) 42 mmHg (35-45); PO2(98.6) 135 mmHg (60-100); SAMPLE BLOOD; SAO2 99.8 % (95.0-100.0); THB 11.7 g/dL (11.5-17.4); pH(98.6) 7.41 (7.35-7.45)
[2019-06-28 09:00] LABS: MODALITY VENTIMASK
[2019-06-28] MEDS ORDERED: COZAAR PO SCH (09:00)
[2019-06-28] MEDS: POTASSIUM CHLORIDE 20 MEQ/SWI 20 MEQ/100 ML IVPB IV SCH ×2 (09:46→11:46)
[2019-06-28] MEDS: THIAMINE IM SCH (09:47)
[2019-06-28 10:27] LABS: CHOLESTEROL 184 mg/dL (0-200); HDL 93 mg/dL (35-55); LDL 76 mg/dL; TRIGLYCERIDES 75 mg/dL (39-160); VLDL 15 mg/dL
[2019-06-28] MEDS: ASPIRIN PO SCH (11:44)
[2019-06-28] MEDS: COREG PO SCH ×2 (11:44→21:30)
[2019-06-28] MEDS: COZAAR PO SCH (11:44)
[2019-06-28] MEDS: VALIUM PO SCH ×2 (11:45→21:30)
--- NOTE | 2019-06-28 12:38 | PROGRESS NOTE ---
DATE: 06/28/2019 SUBJECTIVE: This morning Mr. Sweeney is on Ativan drip and he is minimally responsive. He would open his eyes and withdraw from pain, but he is verbally not responsive. OBJECTIVE: Vital signs: Blood pressure is 185/109, pulse of 70, respirations 19, temperature is 98.7 degrees. General exam: Mr. Sweeney is a 64-year-old gentleman. He is in bed. He is on a Venturi mask. HEENT/neck: Mucosa is pink and moist. Anicteric. Acyanotic. Neck is supple. He has some bruises over the right face with the swelling and hematoma under the right eye. The eye globe itself is unremarkable, except for mild conjunctival hemorrhage. Chest: Good air entry bilaterally. No crepitations. No rhonchi. Cardiovascular: Regular rate and rhythm. No murmurs, no rubs, no gallops. GI/Abdomen: Soft, distended. Bowel sounds present. Extremities: No pedal edema. UNDERWEAR WELTER: Patient is sleepy, but will withdraw to painful stimulation. LABORATORY DATA: Has been reviewed, unremarkable except for mild low potassium. AST and ALT are trending down. ASSESSMENT: 1. Status post mechanical fall resulting in a facial trauma with a large right periorbital hematoma. The patient's vision is intact. We will continue to monitor. 2. Alcohol use and abuse with withdrawal symptoms. The patient is on the protocol. We are going to now discontinue the drip, and use the Valium with as-needed Ativan. 3. Uncontrolled hypertension. We are going to go up on the patient's current antihypertensive medications, including the Coreg and the losartan. 4. Mildly elevated troponin presumably from demand mismatch vs CAD. Echocardiogram showed an ejection fraction of 55%, but also said there is hypokinesis of the basal to mid point of the inferior wall, raising concern for coronary artery disease. I think patient would eventually need to be evaluated, so would need to have a stress test and possibly a left heart catheterization. Cardiology is on board and will defer further recommendations to them. 6. Generalized weakness, more predominantly in the lower extremities. We will re-evaluate this once patient is out of the Ativan drip. cc: MD ALY Godinez
[2019-06-28] MEDS ORDERED: LOVENOX SUBQ ONE (14:17)
[2019-06-28] MEDS: CLINIMIX E 4.25%-5% SOLUTION 1,000 ML IV SCH (14:37)
[2019-06-29] MEDS: CLINIMIX E 4.25%-5% SOLUTION 1,000 ML IV SCH ×3 (00:46→23:36)
[2019-06-29] MEDS: TYLENOL PO PRN (06:29)
[2019-06-29 06:35] LABS: BASO# 0.04 X1000 (0.0-0.2); BASO% 0.5 % (0.0-0.8); EOS# 0.12 X1000 (0.0-0.7); EOS% 1.5 % (0.0-10.0); HEMATOCRIT 34.1 % (42.0-52.0); HEMOGLOBIN 11.2 g/dL (14.0-18.0); IMM GRAN# 0.02 X1000 (0.0-0.04); IMM GRAN% 0.3 % (0.0-0.5); LYMPH# 1.16 X1000 (1.2-3.4); LYMPH% 14.8 % (20.5-51.1); MCHC 32.8 g/dL (33-37); MCV 97.4 FL (81-99); MONO# 2.07 X1000 (0.11-0.59); MONO% 26.5 % (1.7-9.3); MPV 9.8 FL (7.4-10.4); NEUT# 4.41 X1000 (1.4-6.5); NEUT% 56.4 % (42.2-75.2); PLT 274 X1000 (130-400); WBC 7.82 X1000 (4.8-10.8)
[2019-06-29 07:15] LABS: AGAP 12; ALB/GLOB RATIO 1.1; ALBUMIN 3.3 g/dL (3.5-5.0); ALKALINE PHOSPHATASE 85 U/L (32-122); BUN 17 mg/dL (8-22); CHLORIDE 95 mmol/L (98-107); COSMO 276; CREATININE 0.8 mg/dL (0.7-1.2); ESTIMATED GFR > 60; GLUCOSE 169 mg/dL (70-104); GOT 50 U/L (10-34); GPT 46 U/L (10-44); POTASSIUM 3.9 mmol/L (3.5-5.1); SODIUM 135 mmol/L (136-145); TCO2 28 mmol/L (25-35); TOTAL BILIRUBIN 0.98 mg/dL (0.20-1.00); TOTAL PROTEIN 6.4 g/dL (6.3-8.3)
[2019-06-29 07:25] LABS: LYMPHS 8 % (21-51); MONO 36 % (1-9); SEGS 56 % (42-75)
[2019-06-29] MEDS: COREG PO SCH ×2 (08:50→20:22)
[2019-06-29] MEDS: COZAAR PO SCH (08:51)
[2019-06-29] MEDS: ASPIRIN PO SCH (08:51)
[2019-06-29] MEDS: THIAMINE 100 MG in NS 50 ML IV SCH (08:51)
[2019-06-29] MEDS: VALIUM PO SCH ×2 (08:51→20:22)
[2019-06-29] MEDS: LOVENOX SUBQ SCH (08:51)
--- NOTE | 2019-06-29 10:24 | PROGRESS NOTE ---
DATE: 06/29/2019 SUBJECTIVE: This morning, Mr. Sweeney refers to be doing a lot better. No more shaking. I understand he had his breakfast. He was calmer. I understand a brother of his came to visit him. OBJECTIVE: Vital Signs: Blood pressure is 166/89, pulse of 89, respirations 23, temperature is 100.1 degrees. General: Mr. Sweeney is a 64-year-old, gentleman. He is in bed. No distress. HEENT: Mucosa is pink and moist. Anicteric. Acyanotic. Neck is supple. The patient has an ecchymotic lesion over the right eye with swelling below the eye. The eye globe itself has some mild conjunctival hemorrhage, but vision is normal. Chest: Good air entry bilaterally. There are no crepitations, no rhonchi. Cardiovascular: Regular rate and rhythm. There are no murmurs, no rubs, no gallops. GI: Abdomen is soft, nontender. Bowel sounds present. Extremities: No pedal edema. Distal pulses present. ELECTRIC HOIST OPERATOR: The patient is awake, alert. He follows commands. I did not see a lot of tremors today. LABORATORY DATA: CBC shows mild normocytic anemia. Chemistry is also reviewed. Sodium is 135. The rest of chemistry is unremarkable. ASSESSMENT: 1. Status post mechanical fall, resulting in facial trauma with a large right periorbital hematoma. Vision is intact. The patient continues to be stable. 2. Alcohol use and abuse with withdrawal symptoms on admission. The patient seems to be a lot better now. No more shaking. No hallucinations. He is calmer. He is tolerating his diet. We are going to transfer him out of the intensive care unit. 3. Uncontrolled hypertension. Will continue with his current medications. We will titrate it up. 4. Mildly elevated troponins on admission associated with abnormal echocardiogram. I think the patient will eventually need to be risk stratified with possible stress test and a left heart catheterization. Cardiology is on board, and we will defer recommendations to them. The patient is currently on Coreg and aspirin. 5. Generalized weakness. Physical Therapy has been consulted. In general, I think Mr. Sweeney is doing a lot better today. We are going to discontinue the Corbin catheter, transfer him to the medical floor, continue with his current medications for his comorbidities, and await further recommendations from Cardiology in terms of his ischemic workup. cc: Matt Galarza MD
[2019-06-29] MEDS: CRESTOR PO SCH (10:37)
[2019-06-29] MEDS ORDERED: COZAAR PO ONE (13:24)
[2019-06-30] MEDS: ATIVAN IV PRN ×4 (01:19→18:24)
[2019-06-30] MEDS: CRESTOR PO SCH (08:04)
[2019-06-30] MEDS: CLINIMIX E 4.25%-5% SOLUTION 1,000 ML IV SCH (08:04)
[2019-06-30] MEDS: COZAAR PO SCH (08:04)
[2019-06-30] MEDS: ASPIRIN PO SCH (08:05)
[2019-06-30] MEDS: COREG PO SCH ×2 (08:05→20:30)
[2019-06-30] MEDS: VALIUM PO SCH (08:05)
[2019-06-30] MEDS: LOVENOX SUBQ SCH (08:05)
[2019-06-30] MEDS: THIAMINE 100 MG in NS 50 ML IV SCH (08:06)
[2019-06-30] MEDS: THERA M PLUS PO SCH (10:17)
--- NOTE | 2019-06-30 11:09 | CARDIOLOGY PROGRESS NOTE ---
DATE: 06/30/2019 SUBJECTIVE: Mr. Sweeney says he is not doing real good today. He does not have any acute pain complaints. PHYSICAL EXAMINATION: Vital Signs: Afebrile. Heart rate is 79. His blood pressures have been elevated anywhere from the 150s to 180s predominantly, systolic. General: He is in no acute distress. Cardiovascular: He sounds to be in a regular rate and rhythm. He has no obvious murmurs. He has no S3 he has no lower extremity edema. Chest: Exam sounds clear bilaterally. He has no increased work of breathing. Abdomen: Soft and nontender. PERTINENT DATA: His white count is 7.8, his hematocrit is 34, his platelet count is 274,000. His sodium is 135, potassium 3.9, his BUN is 17, and creatinine 0.8. His LDL was 76. ASSESSMENT: Mr. Sweeney is a 64-year-old gentleman who came in with rhabdomyolysis. This was secondary to a fall related to bilateral leg weakness. PLAN: At this point, his antihypertensives have been adjusted. He does have a wall motion abnormality on his echocardiogram, but it is subtle in the inferior base. His troponin elevation was nonspecific, and his EKG was not suggestive of any acute findings. He did not come in with any ACS type symptoms. Considering his current debility, I would not put him through an ischemia evaluation. I would continue the aspirin, beta-marnie, and ARB for the time being. I do not have any further acute recommendations other than continuing on the adjustment of the antihypertensives. We will plan on following up as an outpatient with plans for an ischemia evaluation as an outpatient. cc: Amauri Zuluaga MD
--- NOTE | 2019-06-30 11:21 | Diag Imaging Result Doc PS360 ---
EXAM: MRI BRAIN W/O CONTRAST 06/30/2019 HISTORY: AMS. right side weakness TECHNIQUE: T1 sagittal and axial, axial T2, FLAIR, DWI, [place], and coronal gradient echo. COMMENT: There is mild generalized cerebral atrophy. There are patchy areas of increased T2-weighted signal intensity in the subcortical and periventricular white matter of both hemispheres. There is no evidence of bleed or abnormal extra-axial fluid collection. There is no evidence of restricted diffusion. IMPRESSION: Chronic ischemic microvascular white matter changes. No evidence of acute intracranial disease. Electronically signed by Chase Crawford 06/30/2019 11:19 AM
--- NOTE | 2019-06-30 16:17 | PROGRESS NOTE ---
DATE: 06/30/2019 SUBJECTIVE: This morning, Mr. Sweeney refers to be doing well. He was here taking off his gown at the time of the encounter. When I asked him he said as he just feels better that way. I asked his nurse and his nurse also refers that he just keeps fidgeting and taking off the gown. OBJECTIVE: Vital signs: Blood pressure is 165/83, pulse of 78, respiration is 19, temperature is 98.3 degrees. General: Mr. Sweeney is a 64-year-old elderly male. He is in bed. No distress. Mucosa is pink and moist. Anicteric. Acyanotic. Neck: Supple. No JVD. Patient has some ecchymotic lesions over the right eye where there is some swelling below it. The eye globe itself has a mild subconjunctival hemorrhage, but vision is normal. Chest: Good air entry bilaterally. No crepitations. No rhonchi. Cardiovascular: Regular rate and rhythm. There is no murmurs. No rubs. No gallops. Abdomen: Soft, nontender. Bowel sounds present. There is no hepatosplenomegaly. Extremities: No pedal edema. Central Nervous System: Patient is awake, alert. Follows commands. LABORATORY DATA: None for today. IMAGING STUDIES: An MRI of the brain which was done today showed chronic ischemic microvascular white matter changes. No evidence of acute intracranial disease. ASSESSMENT: 1. Status post mechanical fall resulting into a facial trauma with the left right periorbital hematoma. Vision is intact. 2. Alcohol use and abuse with withdrawal symptoms on admission. Patient seems to have significantly improved. No hallucination. He seems to be calmer. We will continue using p.r.n. Ativan. I have discontinued the Valium and we will put him on a low- dose gabapentin. 3. Uncontrolled hypertension. We will continue titrating his medications. 4. [id number] myocardial ischemia with abnormal echocardiogram. The patient has been evaluated by Cardiology. They plan to continue with aspirin, beta marnie, and angiotensin II receptor blockers and follow him up on outpatient basis for other diagnostic workup. 5. Generalized weakness. The patient has been evaluated by physical therapy. They have recommended that the patient will benefit from detention facility. We have consulted the social media intern for rehab placement. PLAN: In general, Mr. Sweeney got admitted to the hospital on 06/25/2019 mainly because of lower extremity weakness, frequent falls. On admission, he was found to be actively withdrawing from alcohol. He was admitted to the ICU for a couple days. He was also found to have a very low sodium due dehydration and possible to beer potomania. He seems to have improved during the hospital course. He is more calm. He is more alert. He is tolerating his meals. An MRI this morning has not shown any acute intracranial pathology. Cardiology has evaluated him. The plan to follow up with him on outpatient basis. We have consulted social work for rehab placement. I think once we have rehab arrangements done Mr. Sweeney can be discharged. cc: Matt Galarza MD MTDD
[2019-06-30] MEDS: MORPHINE IV PRN (20:29)
[2019-07-01 07:42] LABS: AGAP 14; ALBUMIN 3.4 g/dL (3.5-5.0); BUN 16 mg/dL (8-22); CALCIUM 9.1 mg/dL (8.8-10.2); CHLORIDE 93 mmol/L (98-107); COSMO 268; CREATININE 0.7 mg/dL (0.7-1.2); ESTIMATED GFR > 60; GLUCOSE 98 mg/dL (70-104); MAGNESIUM 1.5 mg/dL (1.5-2.7); PHOSPHORUS 3.8 mg/dL (2.7-4.5); SODIUM 133 mmol/L (136-145); TCO2 26 mmol/L (25-35)
[2019-07-01] MEDS: CRESTOR PO SCH (09:27)
[2019-07-01] MEDS: VITAMIN B-1 PO SCH (09:27)
[2019-07-01] MEDS: ASPIRIN PO SCH (09:27)
[2019-07-01] MEDS: LOVENOX SUBQ SCH (09:28)
[2019-07-01] MEDS: THERA M PLUS PO SCH (09:28)
[2019-07-01] MEDS: COREG PO SCH ×2 (09:28→20:57)
[2019-07-01] MEDS: COZAAR PO SCH (09:28)
--- NOTE | 2019-07-01 14:36 | PROGRESS NOTE ---
DATE: 07/01/2019 SUBJECTIVE: Patient reports feeling fine. He was feeling a little bit sleepy this morning but no complaints at this time. OBJECTIVE: Vital Signs: Temperature 98.6 degrees, heart rate 70, respiratory 17, blood pressure 171/96. Systolic blood pressure has been around that number for the last 24 hours. O2 saturation 98% on room air. General Examination: This is a chronically ill-appearing, 64-year-old, male, lying in bed, in no acute distress. HEENT: Head is normocephalic and atraumatic. Neck: No JVD noted. No carotid bruits. No lymphadenopathy. No thyromegaly. Cardiovascular Examination: S1 and S2 heard. No murmurs, gallops, or rubs. Regular rate and rhythm. Respiratory Examination: Clear bilaterally to auscultation. No work of breathing or using accessory muscles. Abdomen: Soft, nontender to palpation. Bowel sounds present. No organomegaly. Extremities: No clubbing, cyanosis, or edema. Peripheral pulses present in both legs. Neurological Examination: The patient is alert, awake, and moves 4 extremities. Follows commands. Laboratory Data: None. ASSESSMENT AND PLAN: 1. Status post mechanical fall resulting in facial trauma with left right periorbital hematoma. That condition is stable. Vision is intact. 2. Alcohol use and abuse with withdrawal symptoms on presentation. The patient is definitely much better. He is a little bit slow but no signs of alcohol withdrawal. At this point, we will continue with the same management. We will continue with low-dose gabapentin. 3. Uncontrolled hypertension. Blood pressure is still elevated so we are going to add amlodipine 5 mg 1 tablet by mouth twice a day to his current treatment. 4. Non ST-segment elevation myocardial infarction. Cardiology is following. At this point, the patient is stable. 5. General weakness. Physical therapy working with this patient. 6. Disposition. At this point, the patient is stable. He has been confused so an MRI of the brain has been ordered which did not show any acute abnormality. At this point, we will continue to monitor. This patient is waiting for a rehab facility at this point. cc: Lisandro Chen MD
[2019-07-01] MEDS: NORVASC PO SCH ×2 (14:55→20:57)
[2019-07-02] MEDS: TYLENOL PO PRN (05:19)
[2019-07-02] MEDS: VITAMIN B-1 PO SCH (09:35)
[2019-07-02] MEDS: COZAAR PO SCH (09:36)
[2019-07-02] MEDS: NORVASC PO SCH ×2 (09:36→20:16)
[2019-07-02] MEDS: LOVENOX SUBQ SCH (09:36)
[2019-07-02] MEDS: CRESTOR PO SCH (09:36)
[2019-07-02] MEDS: ASPIRIN PO SCH (09:36)
[2019-07-02] MEDS: COREG PO SCH ×2 (09:36→20:15)
[2019-07-02] MEDS: THERA M PLUS PO SCH (09:36)
--- NOTE | 2019-07-02 13:17 | PROGRESS NOTE ---
DATE: 07/02/2019 SUBJECTIVE: The patient is very sleepy today. Basically alert yesterday. No acute issues noted as per nursing staff overnight. OBJECTIVE: Vital Signs: Temperature 98.8 degrees, heart rate 80, respiratory rate 17, blood pressure 166/67. O2 saturation 99% on room air. General: This is a chronically ill-appearing, 64-year-old male, lying in bed, in no acute distress. HEENT: Head is normocephalic. Patient has ecchymotic lesions over the right eye where there is some swelling below. The eye globe itself has mild subconjunctival hemorrhage but patient is completely normal. Neck: No JVD noted. No carotid bruits. No lymphadenopathy. No thyromegaly. Cardiovascular: S1, S2 heard. No murmurs, gallops, or rubs. Regular rate and rhythm. Respiratory: Clear bilaterally to auscultation. No work of breathing or using accessory muscles. Abdomen: Soft, nontender to palpation. Bowel sounds present. No organomegaly. Extremities: No clubbing, cyanosis, or edema. Peripheral pulses present in both legs. Neurological: Patient alert and oriented x3. Moves 4 extremities. LABORATORY DATA: Reviewed. ASSESSMENT AND PLAN: 1. Acute post mechanical fall resulting facial trauma with right periorbital hematoma. Condition is stable. The patient is intact. We will continue to monitor. 2. Alcohol use and abuse with withdrawal symptoms on presentation. The patient is stable at this point. We will continue current management on low doses of gabapentin. 3. Uncontrolled hypertension. Blood pressure is much better controlled today. We will continue to monitor. 4. Non ST-segment elevation myocardial infarction. Cardiology following this patient. We will continue to monitor. 5. General weakness. Physical therapy working with this patient. 6. Disposition. At this point, patient is medically stable and we are waiting for a rehab bed for him. cc: Lisandro Chen MD
[2019-07-02] MEDS: ATIVAN IV PRN (20:16)
[2019-07-03] MEDS: NORVASC PO SCH ×2 (08:46→20:18)
[2019-07-03] MEDS: CRESTOR PO SCH (08:46)
[2019-07-03] MEDS: COREG PO SCH ×2 (08:46→20:18)
[2019-07-03] MEDS: THERA M PLUS PO SCH (08:46)
[2019-07-03] MEDS: ASPIRIN PO SCH (08:46)
[2019-07-03] MEDS: VITAMIN B-1 PO SCH (08:47)
[2019-07-03] MEDS: MORPHINE IV PRN ×2 (08:47→16:13)
[2019-07-03] MEDS: LOVENOX SUBQ SCH (08:47)
[2019-07-03] MEDS: COZAAR PO SCH (08:47)
[2019-07-03] MEDS: ATIVAN IV PRN ×2 (08:47→16:13)
--- NOTE | 2019-07-03 18:22 | PROGRESS NOTE ---
DATE: 07/03/2019 SUBJECTIVE: The patient is a little bit more awake today. Apparently, he has been working with physical therapy. OBJECTIVE: Vital Signs: Temperature 97.6 degrees, heart rate 69, respiratory rate 18, blood pressure 122/72, O2 saturation 100% on room air. General: This is a chronically ill-appearing, 64-year-old male, lying in bed, in no acute distress. HEENT: Head is normocephalic. Patient has ecchymotic lesions over the right eye where there is a complete swelling below the eyeball. The eyeball, itself, has mild subconjunctival hemorrhage but the patient's sight is completely normal. Neck: No JVD noted. No carotid bruit. Cardiovascular: S1, S2 heard. No murmurs, gallops, or rubs. Regular rate and rhythm. Respiratory: Clear bilaterally to auscultation. No work of breathing or using accessory muscles. Abdomen: Soft, nontender to palpation. Bowel sounds present. No organomegaly. Extremities: No clubbing, cyanosis, or edema. Peripheral pulses present in both legs. Neurological: Patient alert oriented x3. Moves four extremities. LABORATORY DATA: Reviewed. ASSESSMENT AND PLAN: 1. Status post mechanical fall resulting in facial trauma with right periorbital hematoma, stable. 2. Alcohol use and abuse with withdrawal symptoms on presentation. Improved. We will continue to monitor. 3. Uncontrolled hypertension. Blood pressure is much better controlled. We will continue with same management. 4. Non ST-segment elevation myocardial infarction. We will continue with medical treatment. Cardiology has been following this patient. 5. Generalized weakness. We will continue working with Physical Therapy. 6. Disposition. At this point, we are awaiting a rehab bed for him. cc: Lisandro Chen MD
[2019-07-04] MEDS: MORPHINE IV PRN ×3 (04:37→12:38)
[2019-07-04] MEDS: NORVASC PO SCH (08:36)
[2019-07-04] MEDS: ASPIRIN PO SCH (08:36)
[2019-07-04] MEDS: COZAAR PO SCH (08:36)
[2019-07-04] MEDS: THERA M PLUS PO SCH (08:36)
[2019-07-04] MEDS: ATIVAN IV PRN ×2 (08:36→12:38)
[2019-07-04] MEDS: CRESTOR PO SCH (08:37)
[2019-07-04] MEDS: COREG PO SCH (08:37)
[2019-07-04] MEDS: VITAMIN B-1 PO SCH (08:37)
[2019-07-04] MEDS: LOVENOX SUBQ SCH (08:37)
--- NOTE | 2019-07-04 11:28 | PROGRESS NOTE ---
DATE: 07/04/2019 SUBJECTIVE: Patient continues to be a little bit sleepy this morning but answers questions appropriately. No acute issues noted by staff overnight. OBJECTIVE: Vital Signs: Temperature 99.3 degrees, heart rate 72, respiratory rate 14, blood pressure 141/61. O2 saturation 99% on room air. General: This is a chronically ill-appearing, 64-year-old male, lying in bed, in no acute distress. HEENT: Head is normocephalic. The patient has ecchymotic lesions over the right eye where there is a complete swelling below the eyeball. Mild subconjunctival hemorrhage. The patient's dentition is okay. Neck: No JVD noted. No carotid bruit. Cardiovascular: S1, S2 heard. No murmurs, gallops, or rubs. Regular rate and rhythm. Respiratory: Clear bilaterally to auscultation. No work of breathing or using accessory muscles. Abdomen: Soft, nontender to palpation. Bowel sounds present. No organomegaly. Extremities: No clubbing, cyanosis, or edema. Peripheral pulses present in both legs. Neurological: The patient is alert, oriented x3. Moves 4 extremities. LABORATORY DATA: Reviewed. ASSESSMENT AND PLAN: 1. Status post mechanical fall resulting in facial trauma with right periorbital hematoma. That condition is stable. 2. Alcohol use and abuse with withdrawal symptoms at presentation. At this point, we will continue to monitor this patient closely. 3. Uncontrolled hypertension. Blood pressure is under control. We will continue with same management. 4. Non ST-segment elevation myocardial infarction. We will continue with medical treatment. Cardiology has been following this patient. 5. General weakness. The patient is working with physical therapy. 6. Disposition. At this point, patient is medically stable. Continue to wait for rehab. cc: Lisandro Chen MD MTDD
--- NOTE | 2019-07-04 13:44 | DISCHARGE SUMMARY ---
ADMISSION DATE: 06/25/2019 DISCHARGE DATE: 07/04/2019 DISCHARGE DIAGNOSES: 1. [id number] elevation myocardial infarction. 2. Hypertensive heart disease. 3. Alcohol abuse with early withdrawal, resolved. 4. Hyponatremia, resolved. 5. Head injury completely with periorbital hematoma. 6. Status post mechanical fall. CONSULTATIONS: Dr. Amauri Zuluaga from Cardiology. PROCEDURES: 1. Head and cervical spine CT showed periventricular and subcortical chronic appearing white matter changes that have worsened since 2012, right periorbital soft tissue hematoma. 2. Maxillofacial CT showed large right periorbital hematoma, but no evidence of facial bone fracture. 3. Chest x-ray showed slightly lower lung volumes, stable chest otherwise. 4. Brain MRI showed chronic ischemic microvascular white matter changes, but no evidence of acute intracranial disease. HOSPITAL COURSE: In brief this is a 64-year-old male, who presented to the ER after falling and hitting his head. The ER workup is as we mentioned above. He was found to have in the ER workup elevated troponins. We diagnosed as a [id number] elevation myocardial infarction, but talking with the simulation tech, they said to avoid any anticoagulation due to his extensive facial hematoma. The patient was started on aspirin. He was getting better. He was placed on Librium for early alcohol withdrawal. He was also given a banana bag as well. He was getting better. For hyponatremia found on admission attributed to potomania, he was getting better with IV fluids. Regarding head injury with periorbital hematoma, we provided pain medications. Patient slowly got better from all those conditions. Cardiology recommends medical management only. Patient started working with physical therapy. So at this point, we do have a bed for him in a rehab facility so he is going to be discharged in stable condition. DISCHARGE PHYSICAL EXAMINATION: Vital Signs: Temperature 97.5 degrees, heart rate 76, respiratory rate 16, blood pressure 167/74, and O2 saturation 100% on room air. General: This is a chronically ill-appearing 64-year-old male, lying in bed, in no acute distress. HEENT: Head is normocephalic. Patient has ecchymotic lesions over the right eye. There is swelling below the eyeball with mild subconjunctival hemorrhage, but the patient's vision is okay. Neck: No JVD noted. No carotid bruit. Cardiovascular: S1 and S2 heard. No murmurs, gallops, or rubs. Regular rate and rhythm. Respiratory: Clear bilaterally to auscultation. No work of breathing or using accessory muscles. Abdomen: Soft, nontender to palpation. Bowel sounds present. No organomegaly. Extremities: No clubbing, cyanosis, or edema. Peripheral pulses present in both legs. Neurological: The patient is alert and oriented x3. Moves 4 extremities. DISCHARGE DISPOSITION: Home to self-care. MEDICATIONS: 1. Aspirin 81 mg 1 tablet p.o. daily. 2. Carvedilol 12.5 mg 1 tablet p.o. b.i.d. 3. Losartan 100 mg 1 tablet p.o. daily. 4. Amlodipine 5 mg 1 tablet p.o. b.i.d. 5. Multivitamin 1 tablet p.o. daily. 6. Tylenol 650 mg 1 tablet p.o. every 6 hours as needed for pain. 7. Tramadol 50 mg 1 tablet p.o. every 6 hours as needed for pain. 8. Thiamine 1 tablet 100 mg 1 tablet p.o. daily. 9. Rosuvastatin 20 mg 1 tablet p.o. daily. 10. Lorazepam 0.5 mg 1 tablet p.o. every 6 hours as needed for anxiety. TIME SPENT: The time spent discharging this patient was 35 minutes. cc: Lisandro Chen MD
[2019-07-04 14:12] VITALS: BP 136/68
== END 2019-07-04 18:14 | DRG 281 ==
LOC: SUPCPDRO → ED 15:52 → SUATTDRO 22:29 → EDIPHOLD 22:29 → ICU 06-26 14:46 → EDIPHOLD 06-26 15:48 → ICU 06-26 18:41 → 3N 06-29 13:19
PROVIDERS: ATTEND Internal Medicine